=== PATIENT | male | born 1970 | race Caucasian/White ===

== ENCOUNTER 2024-06-05 09:48 | Outpatient (AMB) | payer MEDICAID, SELFPAY ==
[2024-06-05 09:55] VITALS: BP 145/95; PULSE 76; RESP 18; TEMP 36.8; O2SAT 99; BMI 25.2
--- NOTE | 2024-06-05 09:55 | PD.ORTHCLVIS ---
Vital signs 06/05/24 09:55 Height 1.74 m Height Method Stated Weight 76.459 kg Weight Measurement Method Standing Scale BMI 25.2 BP 145/95 H Blood Pressure Source Automatic Cuff Blood Pressure Location Right Upper Arm Position Sitting Respiration 18 Pulse 76 Pulse Source Monitor Temp 98.3 F Temp Source Temporal Artery Scan Pulse Oximetry (%) 99 Oxygen Delivery Method Room Air Med/Allergies Allergies & Medications Allergies No Known Allergies Allergy (Verified 06/05/24 09:57) Medication Reconciliation levothyroxine 137 mcg capsule 137 mcg PO QDAY 02/03/18 [History Confirmed 06/05/24] Exam Exam Patient is in no acute distress and is cooperative with the examination today. Breathing is nonlabored. In no respiratory distress. Patient has no paraspinal tenderness. Spinal deformity cannot be appreciated. The gait of the patient is nonantalgic Bilateral extremities were evaluated and demonstrates sensation intact to light touch. Palpable pedal pulses are present. No significant edema is present. Bilateral knees were examined and the patient has full strength and range of motion.. The left hip was examined. Patient was able to flex to 90 degrees, adduct to 30 degrees, abduct to 40 degrees, internally rotate to 20 degrees, and externally rotate to 20 degrees. Patient has a negative logroll. Stinchfield is negative. The patient is nontender diffusely to touch. The right hip was examined. Patient was able to flex to 90 degrees, adduct to 30 degrees, abduct to 40 degrees, internally rotate to 5 degrees, and externally rotate to 20 degrees. Patient has a positive logroll and Stinchfield Assessment and Plan Problem List (1) Avascular necrosis of bone of right hip: Status: Acute Plan: Is a 53-year-old male with right hip pain and right hip arthritis. He has known avascular necrosis with collapse and is approximately half centimeter shorter on the right. We discussed we will need new x-rays as it been over a year but the last x-rays from [facility] demonstrate significant degenerative joint disease secondary to AVN. 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 Intake Visit Data Collection New Patient or Established: New Patient not seen in past 3 years at [facility] (considered New) Reason for Visit:: RIGHT HIP PAIN Seen by Clinical Staff ONLY (RN/MA): No Verbal consent obtained for Telemed visit?: No 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 PCP or OBGYN visit in last 3 months: Yes Hx Now: No Do You Feel Safe at Home: Yes Authorities Contacted: N/A Questionairres Past Medical History Past Medical History Have you ever been diagnosed with any of the following: Neurological Problems Seizures: No Cardiology Problems Congestive Heart Failure: No Respiratory Problems Chronic Obstructive Pulmonary Disease (COPD): Yes ([facility]) Asthma: Yes Tuberculosis: No Sleep Apnea: No Smoking: Yes Smoking Cessation Counseling: No Smoking Exposure: Yes Genital/Urinary Problems Renal Disease: No Prostate Cancer: No Reproductive Problems Testicular Cancer: No Musculoskeletal Problems Degenerative Joint Disease: Yes Endocrine Problems Diabetes Mellitus Type 1: No Diabetes Mellitus Type 2: No Hyperthyroidism: Yes Hypothyroidism: Yes Graves' Disease: Yes (Treated with radioactive iodine ablation) Blood Problems Anemia: No Psychologic Problems Depression: Yes Anxiety: Yes Other Problems Hospitalization: No Developmental Delay: No Blood Transfusions: No Anesthesia Reactions: No MRSA: No VRSA: No Chicken Pox: Yes Surgical History Total Hip Replacement: Yes Subjective Visit Visit for: new patient and hip Immunization / Flu Flu Vaccine in the Last 12 Months: No Flu Vaccine Exclusion Criteria: No Exclusion Criteria History of Present Illness Chief complaint: RIGHT HIP PAIN Date of injury / onset of symptoms: 10 YEARS Date of 1st surgery (if applicable): 5 YEARS LEFT HIP ChloeX Hammad is a pleasant 53-year-old male with a right hip pain and known right hip avascular porosis. He was proceeded surgery a year ago but it never occurred because the surgeon stopped doing hip replacements. He had a history of a left total hip replacement with Dr. Mane 5 years ago. He reports the pain is affecting his quality life and happiness Personal History Occupation: UNEMPLOYED Red flag PMH: smoker Pain Pain level (0-10): 10 Pain duration: CONSTANT Pain location: groin Pain quality: sharp Pain timing: increases with activity and stairs Associated signs & symptoms: numbness, weakness and stiffness Ambulatory data Ambulatory device: none Treatments Improvement with previous injections: No Improvement with PT: No Improvement with NSAIDS: n/a Review of Systems Review of Systems: All systems negative unless otherwise noted in HPI.
== END 2024-06-05 10:30 | disposition home or self-care (01) ==
LOC: HODSRG 09:48
PROVIDERS: PCP Family Medicine; Referring Provider Family Medicine; Supervising Provider Orthopaedic Surgery Adult Reconstructive Orthopaedic Surgery; Visit Provider Orthopaedic Surgery Adult Reconstructive Orthopaedic Surgery
DX: M87.88 Other osteonecrosis, other site (principal); M25.551 Pain in right hip; M16.11 Unilateral primary osteoarthritis, right hip
CPT/HCPCS: 99203; G0463

== ENCOUNTER → 2024-06-05 | Outpatient (CLI) | payer MEDICAID, SELFPAY ==
--- NOTE | 2024-06-05 10:51 | XR_ITS ---
Examination:Right hip AP, lateral, AP pelvis 3 views Technique: Hip AP lateral, AP pelvis, 3 views Exam date and time:June 05, 2024 1128 hours. INDICATIONS: Right hip pain 10 years. FINDINGS: Advanced right hip osteoarthritis, marked joint space narrowing Extensive avascular necrosis right femoral head involving more than 50% of the articulating surface femoral head Total left hip arthroplasty with satisfactory alignment Bones of the pelvis intact IMPRESSION: Advanced right hip osteoarthritis Extensive avascular necrosis right femoral head
== END | disposition home or self-care (01) ==
PROVIDERS: PCP Physician Assistant; Referring Provider Orthopaedic Surgery Adult Reconstructive Orthopaedic Surgery; Visit Provider Orthopaedic Surgery Adult Reconstructive Orthopaedic Surgery
DX: M16.11 Unilateral primary osteoarthritis, right hip (principal); M87.851 Other osteonecrosis, right femur
CPT/HCPCS: 73502

== ENCOUNTER 2024-06-19 10:56 | Outpatient (AMB) | payer MEDICAID, SELFPAY ==
--- NOTE | 2024-06-19 10:53 | ORTHONT_ITS ---
Med/Allergies Allergies & Medications Allergies No Known Allergies Allergy (Verified 06/19/24 10:53) Medication Reconciliation levothyroxine 137 mcg capsule 137 mcg PO QDAY 02/03/18 [History Confirmed 06/19/24] Subjective Visit Visit for: follow up visit and x-rays (RESULTS) Immunization / Flu Flu Vaccine in the Last 12 Months: No Flu Vaccine Exclusion Criteria: No Exclusion Criteria History of Present Illness Chief complaint: Right hip pain This is a pleasant 54-year-old male with severe right hip arthritis. He had a left hip replacement done 5 years ago. He reports the right hip is starting affect spondylous papules. He has pain in his groin. Ambulatory data Ambulatory device: none Treatments Improvement with previous injections: No Improvement with PT: No Improvement with NSAIDS: no Review of Systems Review of Systems: All systems negative unless otherwise noted in HPI. Assessment and Plan Problem List (1) Avascular necrosis of bone of right hip: Status: Acute Plan: Is a 53-year-old male with right hip pain and right hip arthritis. He has known avascular necrosis with collapse and is approximately half centimeter shorter on the right. We discussed the significant arthritis and avascular porosis on the right. We thus discussed total hip placement and reasonable option as he is failed conservative treatment. We will do this with a anterior approach match his other side Plan The nature and purpose of the total hip replacement, alternative method(s) of treatment, the material risks involved, and the possibility of complications were fully explained to the patient. The patient does NOT have any of the following contraindications to MANDA: - Active infection of the hip joint, OR - Active systemic bacteremia, OR - Active skin infection or open wound at surgical site, OR - Neuropathic arthritis, OR - Severe, rapidly progressive neurological disease, OR - Severe medical condition that makes risks of the surgery outweigh the potential benefit The patient was told the most common risks and complications associated with a total hip replacement include, but are not limited to: blood clots in the leg, fatal pulmonary embolism, dislocation of the prosthesis, intraoperative and postoperative fractures of the femur or acetabulum, infection, failure of the prosthesis or grafting materials, complications from anesthesia, reactions to blood transfusions, postoperative leg length inequality, instability of the hip replacement, nerve damage or injury, vascular injury, delayed wound healing, infection, other injury or even . In addition, there are risks associated with anesthesia given during this operation. Also, the patient was told that after undergoing a total hip replacement there may still be persistent pain or disability. The patient was informed that the success of this operation in part depends upon the mechanical devices which are going to be implanted and that these devices can fail or malfunction, and may need to be repaired or replaced and there are no guarantees as to the longevity of this device or its parts and that it or its parts could fail prematurely. The patient was also notified that during the course of surgery, there may be a need to use bone graft from donors, and that any bone graft used will be carefully screened for communicable diseases, including AIDS, hepatitis, Michael-Creutzfeldt, or other diseases, but despite the screening procedures, there is a small chance that they could contract one of these diseases. Finally, the patient was asked to follow completely and fully with all advice and recommended treatments, and that recovery and ultimate outcome are affected by their compliance with recommended treatment. We discussed the risks, benefits and treatment alternatives, and the patient is interested in proceeding with surgery. We will try to set this up as expeditiously as possible. Office Procedures GNS Level of Care Nursing/Assessment Patient Status: Established Patient Nursing Assessment/Reassesment: Medication Reconciliation, Update PMH in EMR and Vital Signs Coordination of Care: Complex Care and Chronic Disease 1-5, Education Complex Pt/Fam, Consent,records obtained, informed consent, Results/Orders obtained and Staff clarify orders Established Patient Charge Established Patient Point Assignment: 95 Telehealth Telemed Phone/Video with patient at home & Dr,PA,SECURITY ORDERLY: Yes
== END 2024-06-19 11:12 | disposition home or self-care (01) ==
LOC: HODSRG 10:56
PROVIDERS: PCP Family Medicine; Referring Provider Family Medicine; Supervising Provider Orthopaedic Surgery Adult Reconstructive Orthopaedic Surgery; Visit Provider Orthopaedic Surgery Adult Reconstructive Orthopaedic Surgery
DX: M87.88 Other osteonecrosis, other site (principal); M25.551 Pain in right hip; M16.11 Unilateral primary osteoarthritis, right hip; Z96.642 Presence of left artificial hip joint
CPT/HCPCS: 99212; G0463